=== PATIENT | female | born 1955 | race Two or more races ===

== ENCOUNTER 2017-01-24 13:47 | Emergency (ER) | payer MEDICAID, OTHER ==
[~2017-01-24] VITALS: Ht 154.9 cm; Wt 68.5 kg
[~2017-01-24 13:47] MED LIST: CATAPRES0.2 MG ORAL; NORVASC5 MG ORAL; THALOMID50 MG PO; ZOLPIDEM TARTRA10 MG ORAL
[2017-01-24] MEDS ORDERED: LORAZEPAM2 MG/1 M4 ORAL (14:18)
[2017-01-24 14:44] VITALS: BP 147/91
[2017-01-24 15:07] VITALS: BP 151/82
--- NOTE | 2017-01-24 16:32 | Emergency Room Report ---
History of Present Illness General Chief Complaint: Pain Source: Patient Present Illness HPI 61-year-old female presents to ED for evaluation. Patient referred by PMD to rule out DVT. Patient has pain and swelling to her right calf times one week. Patient has has arthritis of the right knee and typically gets swelling of the right knee however patient is also noting swelling of the right calf. Pain is a 10 out of 10, throbbing, nonradiating. Denies chest pain or shortness of breath. No other aggravating relieving factors. Denies any other associated symptom Allergies: Coded Allergies: No Known Allergies (Unverified , 04/29/16) Patient History Past Medical History: HTN Past Surgical History: none Pertinent Family History: none Social History: Denies: alcohol use, drug use, smoking Now: No Immunizations: UTD Reviewed Nursing Documentation: PMH: Agreed, PSxH: Agreed Nursing Documentation-PMH Hx Cardiac Problems: Yes Hx Hypertension: Yes Hx Cancer: No Hx Gastrointestinal Problems: No Hx Neurological Problems: No - RA Review of Systems All Other Systems: negative except mentioned in HPI Physical Exam Vital Signs Date Time Temp Pulse Resp B/P Pulse Ox O2 Delivery O2 Flow Rate FiO2 01/24/17 14:06 100.0 113 18 162/97 98 Room Air Sp02 EP Interpretation: reviewed, normal General Appearance: no apparent distress, alert, GCS 15, non-toxic Head: normocephalic Eyes: bilateral eye PERRL, bilateral eye normal inspection ENT: normal ENT inspection Neck: normal inspection Respiratory: chest non-tender, lungs clear, normal breath sounds, speaking full sentences Cardiovascular #1: regular rate, rhythm, no edema Gastrointestinal: normal inspection Rectal: deferred Genitourinary: no CVA tenderness Musculoskeletal: calf tenderness, swelling - R knee Neurologic: alert, oriented x3, responsive, motor strength/tone normal, sensory intact, speech normal Psychiatric: judgement/insight normal, memory normal, mood/affect normal, no suicidal/homicidal ideation Skin: normal inspection Lymphatic: normal inspection Medical Decision Making Diagnostic Impression: Primary Impression: Calf swelling ER Course Hospital Course 61-year-old F presents to ED complaining of R calf pain/swelling. sent to r/o DVT Differential diagnoses include: arthritis, DVT, cellulitis Clinical course Patient placed on stretcher. After initial history and physical, I ordered doppler US no evidence of DVT. Swelling is likely from the right knee which is very swollen. Patient has history of ulcer arthritis of the right knee and states this is typical Diagnosis - calf swelling Stable and discharged to home. apply ice, keep elevated. weight bear as tolerated. Followup with PMD. Return to ED if symptoms recur or worsen CT/MRI/US Diagnostic Results CT/MRI/US Diagnostic Results : Imaging Test Ordered: doppler US RLE Impression no dvt Last Vital Signs Date Time Temp Pulse Resp B/P Pulse Ox O2 Delivery O2 Flow Rate FiO2 01/24/17 15:07 100.0 99 18 151/82 99 Room Air Status: improved Disposition: HOME, SELF-CARE Condition: Stable Patient Instructions: Osteoarthritis DANILO WATERS M.D. Jan 24, 2017 16:32
--- NOTE | 2017-01-27 11:42 | Diagnostic Imaging Report ---
APPROVED REPORT CPT Code: 01199 Present Symptoms Lower Extremity Pain: Right RIGHT LEG: Venous imaging reveals a patent deep venous system. There is no evidence of thrombus within the femoral, popliteal or tibial segments. The greater saphenous vein is also within normal limits. Doppler indicates normal spontaneous flow within these segments.
== END 2017-01-24 15:10 | disposition home or self-care (01) ==
LOC: EMR 14:40
DX: R22.41 Localized swelling, mass and lump, right lower limb (principal); M17.11 Unilateral primary osteoarthritis, right knee; I10 Essential (primary) hypertension; M06.9 Rheumatoid arthritis, unspecified
CPT/HCPCS: 93971; 99284

== ENCOUNTER 2017-05-15 20:23 | Emergency (ER) | payer OTHER ==
[~2017-05-15] VITALS: Ht 152.4 cm; Wt 67.1 kg
[~2017-05-15 20:23] MED LIST changes: +LORAZEPAM2 MG/1 M4 ORAL
[2017-05-15] MEDS ORDERED: AMLODIPINE BESY10 MG ORAL (20:32)
[2017-05-15] MEDS ORDERED: VITAMIN D22000 UNIT PO (20:32)
[2017-05-15] MEDS ORDERED: FOLIC ACID1 MG ORAL (20:32)
[2017-05-15] MEDS ORDERED: METHOTREXATE2.5 MG PO (20:32)
[2017-05-15] MEDS ORDERED: Metoprolol 5mg/5ml Inj IVP ONE (21:00)
[2017-05-15 21:16] VITALS: BP 169/104
[2017-05-15 21:20] LABS: BASOPHILS % (AUTO) 1.1 % (0.0-2.0); EOSINOPHILS % (AUTO) 1.5 % (0.0-3.0); LYMPHOCYTES % (AUTO) 28.8 % (20.0-45.0); MEAN CORPUSCULAR HEMOGLOBIN 28.5 PG (27.0-31.0); MEAN CORPUSCULAR HGB CONC 31.4 G/DL (32.0-36.0); MEAN CORPUSCULAR VOLUME 91 FL (80-99); MEAN PLATELET VOLUME 5.2 FL (6.5-10.1); MONOCYTES % (AUTO) 3.9 % (1.0-10.0); NEUTROPHILS % (AUTO) 64.8 % (45.0-75.0); PLATELET COUNT 307 K/UL (150-450); RED BLOOD COUNT 4.92 M/UL (4.20-5.40); RED CELL DISTRIBUTION WIDTH 13.5 % (11.6-14.8); WHITE BLOOD COUNT 7.6 K/UL (4.8-10.8)
[2017-05-15] MEDS ORDERED: dilTIAZem HCl 25mg/5ml Inj IV PRN (21:45)
[2017-05-15] MEDS ORDERED: Albuterol/Ipratropium 3ml neb HHN PRN (21:45)
[2017-05-15] MEDS ORDERED: Miralax 17gm pkt ORAL PRN (21:45)
[2017-05-15] MEDS ORDERED: Enalaprilat 2.5mg/2ml Inj IV PRN (21:45)
[2017-05-15 21:46] LABS: ANION GAP 7 mmol/L (5-15); CALCIUM 9.6 MG/DL (8.5-10.1); CARBON DIOXIDE 29 MMOL/L (21-32); CHLORIDE 105 MMOL/L (98-107); CREATININE 0.7 MG/DL (0.55-1.30); GLOMERULAR FILTRATION RATE > 60 mL/min (>60); POTASSIUM 3.8 MMOL/L (3.5-5.1); SODIUM 141 MMOL/L (136-145)
[2017-05-15 21:55] VITALS: BP 146/83
[2017-05-15] MEDS ORDERED: Nitroglycerin Subl 0.4mg tab SL PRN (22:00)
[2017-05-15 22:01] LABS: ALANINE AMINOTRANSFERASE 18 U/L (12-78); ALBUMIN/GLOBULIN RATIO 0.9 (1.0-2.7); ASPARTATE AMINO TRANSFERASE 15 U/L (15-37); CKMB < 0.5 NG/ML (0.0-3.6); TOTAL PROTEIN 8.4 G/DL (6.4-8.2)
[2017-05-15] MEDS ORDERED: NORVASC5 MG ORAL (22:30)
[2017-05-15 22:35] VITALS: BP 164/90
[2017-05-16] MEDS ORDERED: Heparin 5000 units/ml inj SUBQ SCH (09:00)
[2017-05-16] MEDS ORDERED: cloNIDine 0.2mg Tab ORAL SCH (09:00)
--- NOTE | 2017-05-16 09:52 | Diagnostic Imaging Report ---
Indication: Shortness of breath Technique: XRAY CHEST 1 V Comparison: 08/02/16 Findings: The cardiomediastinal silhouette is within normal limits. There is no focal consolidation, pneumothorax or pleural effusion. Osseous structures are grossly stable. Impression: No acute cardiopulmonary disease.
--- NOTE | 2017-05-17 08:12 | Emergency Room Report ---
History of Present Illness General Chief Complaint: Hypertension Source: Patient Present Illness HPI Patient is a 61-year-old female brought in by self after increased blood pressure. Patient reported having some rapid heartbeat. Patient had been taking amlodipine as well as clonidine for her blood pressure. Patient had intermittent compliance with her amlodipine. Patient reports not having taken her medication every other day. The patient denies any chest pain or shortness of breath. She reports having a prior history of hypertension. She denies any headache or blurred vision. Allergies: Coded Allergies: No Known Allergies (Unverified , 04/29/16) Patient History Past Medical History: see triage record Last Menstrual Period: NA Now: No Reviewed Nursing Documentation: PMH: Agreed, PSxH: Agreed Nursing Documentation-PMH Hx Cardiac Problems: Yes - heart attack 2004 Hx Hypertension: Yes Hx Cancer: No Hx Gastrointestinal Problems: No Hx Neurological Problems: No - RA Review of Systems All Other Systems: negative except mentioned in HPI Physical Exam Vital Signs Date Time Temp Pulse Resp B/P (MAP) Pulse Ox O2 Delivery O2 Flow Rate FiO2 05/15/17 20:24 97.9 125 18 187/115 98 Room Air 05/15/17 20:37 100 Sp02 EP Interpretation: reviewed, normal General Appearance: normal inspection, well appearing, no apparent distress, alert, GCS 15, non-toxic Head: atraumatic ENT: normal ENT inspection, hearing grossly normal, normal voice Neck: normal inspection, full range of motion, supple, no bony tend Respiratory: normal inspection, lungs clear, normal breath sounds, no respiratory distress, no retraction, no wheezing Cardiovascular #1: regular rate, rhythm, no edema Gastrointestinal: normal inspection, normal bowel sounds, non tender, soft, no guarding, no hernia Genitourinary: no CVA tenderness Musculoskeletal: normal inspection, back normal, normal range of motion Neurologic: normal inspection, alert, responsive, speech normal Psychiatric: normal inspection, judgement/insight normal, mood/affect normal Skin: normal inspection, normal color, no rash Medical Decision Making Diagnostic Impression: Primary Impression: Hypertension ER Course Patient presented for palpitations. The differential diagnosis included was not limited to arrhythmia, thyroid storm, sepsis, anemia, myocardial infarction , alcohol withdrawal, stimulant abuse, caffeine overdose among others. Because of complexity of patient's case laboratory testing and imaging studies were ordered. EKG interpreted by me showed sinus tachycardia without acute ST or T wave changes. The patient was given metoprolol IV with improvement in her symptoms. Patient was given prescription for Norvasc. Patient was advised to take her medications regularly. The patient is advised to follow up with primary care doctor in 1-2 days. Patient is advised to return if any worsening condition or if any changes in status that are concerning. Labs Test 05/15/17 21:00 White Blood Count 7.6 K/UL (4.8-10.8) Red Blood Count 4.92 M/UL (4.20-5.40) Hemoglobin 14.0 G/DL (12.0-16.0) Hematocrit 44.6 % (37.0-47.0) Mean Corpuscular Volume 91 FL (80-99) Mean Corpuscular Hemoglobin 28.5 PG (27.0-31.0) Mean Corpuscular Hemoglobin Concent 31.4 G/DL (32.0-36.0) Red Cell Distribution Width 13.5 % (11.6-14.8) Platelet Count 307 K/UL (150-450) Mean Platelet Volume 5.2 FL (6.5-10.1) Neutrophils (%) (Auto) 64.8 % (45.0-75.0) Lymphocytes (%) (Auto) 28.8 % (20.0-45.0) Monocytes (%) (Auto) 3.9 % (1.0-10.0) Eosinophils (%) (Auto) 1.5 % (0.0-3.0) Basophils (%) (Auto) 1.1 % (0.0-2.0) Sodium Level 141 MMOL/L (136-145) Potassium Level 3.8 MMOL/L (3.5-5.1) Chloride Level 105 MMOL/L (98-107) Carbon Dioxide Level 29 MMOL/L (21-32) Anion Gap 7 mmol/L (5-15) Blood Urea Nitrogen 16 mg/dL (7-18) Creatinine 0.7 MG/DL (0.55-1.30) Estimat Glomerular Filtration Rate > 60 mL/min (>60) Glucose Level 134 MG/DL (74-106) Calcium Level 9.6 MG/DL (8.5-10.1) Total Bilirubin 0.4 MG/DL (0.2-1.0) Aspartate Amino Transf (AST/SGOT) 15 U/L (15-37) Alanine Aminotransferase (ALT/SGPT) 18 U/L (12-78) Alkaline Phosphatase 125 U/L (46-116) Total Creatine Kinase 55 U/L (26-308) Creatine Kinase MB < 0.5 NG/ML (0.0-3.6) Creatine Kinase MB Relative Index 0.9 Troponin I 0.015 ng/mL (0.000-0.056) Total Protein 8.4 G/DL (6.4-8.2) Albumin 4.0 G/DL (3.4-5.0) Globulin 4.4 g/dL Albumin/Globulin Ratio 0.9 (1.0-2.7) Last Vital Signs Date Time Temp Pulse Resp B/P (MAP) Pulse Ox O2 Delivery O2 Flow Rate FiO2 05/15/17 22:35 97.9 106 21 164/90 98 Room Air 100 Status: improved Disposition: HOME, SELF-CARE Condition: Stable Scripts Amlodipine Besylate (Norvasc) 5 Mg Tablet 5 MG ORAL DAILY for 30 Days, TAB Prov: Marc Foss 05/15/17 Referrals: [facility],REFERRING (PCP) Patient Instructions: Hypertension Marc Foss May 17, 2017 08:12
--- NOTE | 2017-05-17 15:32 | Cardiology Report ---
APPROVED REPORT EKG Measurement Heart [id number] Sinus tachycardia Cannot rule out Anterior infarct, age undetermined Abnormal ECG
== END 2017-05-15 22:35 | disposition home or self-care (01) ==
LOC: EMR 20:40
DX: I10 Essential (primary) hypertension (principal)
CPT/HCPCS: 36415; 71010; 80053; 82550; 82553; 84484; 85025; 93005; 99283

== ENCOUNTER 2017-08-03 11:43 | Inpatient (IN) | payer OTHER ==
[~2017-08-03] VITALS: Ht 152.4 cm; Wt 65.3 kg
[~2017-08-03 11:43] MED LIST changes: +AMLODIPINE BESY10 MG ORAL; +FOLIC ACID1 MG ORAL; +METHOTREXATE2.5 MG PO; +VITAMIN D22000 UNIT PO
[2017-08-03 12:20] VITALS: BP 203/117
[2017-08-03 12:50] VITALS: BP 171/111
[2017-08-03 12:56] LABS: BASOPHILS % (AUTO) 0.8 % (0.0-2.0); EOSINOPHILS % (AUTO) 3.1 % (0.0-3.0); HEMOGLOBIN 16.8 G/DL (12.0-16.0); LYMPHOCYTES % (AUTO) 30.6 % (20.0-45.0); MEAN CORPUSCULAR VOLUME 86 FL (80-99); MONOCYTES % (AUTO) 6.5 % (1.0-10.0); NEUTROPHILS % (AUTO) 58.9 % (45.0-75.0); PLATELET COUNT 355 K/UL (150-450); RED BLOOD COUNT 5.91 M/UL (4.20-5.40); RED CELL DISTRIBUTION WIDTH 12.6 % (11.6-14.8)
[2017-08-03 12:58] LABS: ANION GAP 8 mmol/L (5-15); BLOOD UREA NITROGEN 12 mg/dL (7-18); CALCIUM 9.5 MG/DL (8.5-10.1); CARBON DIOXIDE 30 MMOL/L (21-32); CHLORIDE 99 MMOL/L (98-107); CREATININE 0.7 MG/DL (0.55-1.30); POTASSIUM 3.4 MMOL/L (3.5-5.1); SODIUM 136 MMOL/L (136-145)
--- NOTE | 2017-08-03 13:02 | Emergency Room Report ---
History of Present Illness General Chief Complaint: Chest Pain Source: Patient Present Illness HPI 61-year-old female with pmhx of HTN, p/w chest pain for 15 minutes. Chest pain started while at rest. Localized to substernal area, no radiation to back or other areas, sharp in nature, gradual in onset, one episodes. Denies SOB. Denies palpitations, diaphoresis, n/v. Patient does not take aspirin or Plavix Denies fever, chills, cough, abd pain. Denies trauma. Does not know when her last stress test was Last cardiac catheterization around 10 years ago, states that they did not put any stents but does not know the result of the test Denies smoking, no family history of cardiac disease at a young age. States that her pain has resolved upon coming to the emergency room Allergies: Coded Allergies: No Known Allergies (Unverified , 04/29/16) Patient History Past Medical History: see triage record Past Surgical History: none Pertinent Family History: none Reviewed Nursing Documentation: PMH: Agreed, PSxH: Agreed Nursing Documentation-PMH Hx Cardiac Problems: Yes - [place] (1999) Hx Hypertension: Yes - Arthritis Hx Cancer: No Hx Gastrointestinal Problems: No Hx Neurological Problems: No - RA Review of Systems All Other Systems: negative except mentioned in HPI Physical Exam Vital Signs Date Time Temp Pulse Resp B/P (MAP) Pulse Ox O2 Delivery O2 Flow Rate FiO2 08/03/17 11:52 101 20 203/117 95 Room Air 08/03/17 12:50 97.4 97.4 Sp02 EP Interpretation: reviewed, normal General Appearance: normal inspection, well appearing, no apparent distress, alert, GCS 15, non-toxic Head: normocephalic, atraumatic Eyes: bilateral eye normal inspection, bilateral eye PERRL, bilateral eye EOMI ENT: normal ENT inspection, normal pharynx, normal voice, moist mucus membranes Neck: normal inspection, full range of motion, supple Respiratory: normal inspection, lungs clear, normal breath sounds, no respiratory distress, no retraction, no wheezing, speaking full sentences, chest symmetrical Cardiovascular #1: normal inspection, regular rate, rhythm, no edema, normal capillary refill Cardiovascular #2: 2+ radial (R), 2+ radial (L) Gastrointestinal: normal inspection, non tender, soft, non-distended, no guarding Musculoskeletal: normal inspection, back normal, normal range of motion, non- tender Neurologic: normal inspection, alert, oriented x3, responsive, motor strength/ tone normal, sensory intact, normal gait, speech normal Psychiatric: normal inspection, judgement/insight normal, memory normal Skin: normal inspection, normal color, no rash, warm/dry, well hydrated, normal turgor Medical Decision Making Diagnostic Impression: Primary Impression: ACS (acute coronary syndrome) ER Course 61-year-old female presenting with chest pain DDX: ACS vs. CHF vs. pneumonia vs. gastritis/GERD vs. pneumothorax PE on differential however at this time there are other more likely diagnoses. Plan: IV access, obtain labs including troponin, EKG, CXR ASA ER course: Labs: troponin negative Patient given ASA. Patient required morphine for cp Disposition: Patient will be admitted to tele Dr Kaiser Please note that this Emergency Department Report was dictated using [employer] installer technology software, occasionally this can lead to erroneous entry secondary to interpretation by the dictation equipment. EKG Diagnostic Results EP Interpretation: Yes Rate: Tachycardia Rhythm: NSR ST Segments: Possible T wave inversion in V3 only ASA given to patient: Yes Rhythm Strip EP Interpretation: Yes Rate: 99 Rhythm: NSR, no PVCs, no ectopy Chest X-ray CXR: Ordered: Yes 1 view Indication: Chest pain EP interpretation: Yes Interpretation: No consolidation, no effusion, no PTX, no acute cardiopulmonary disease Impression: No acute disease Electronically signed by Myra Luo MD Laboratory Tests Test 08/03/17 12:14 White Blood Count 8.0 K/UL (4.8-10.8) Red Blood Count 5.91 M/UL (4.20-5.40) H Hemoglobin 16.8 G/DL (12.0-16.0) H Hematocrit 51.0 % (37.0-47.0) H Mean Corpuscular Volume 86 FL (80-99) Mean Corpuscular Hemoglobin 28.5 PG (27.0-31.0) Mean Corpuscular Hemoglobin Concent 33.0 G/DL (32.0-36.0) Red Cell Distribution Width 12.6 % (11.6-14.8) Platelet Count 355 K/UL (150-450) Mean Platelet Volume 6.1 FL (6.5-10.1) L Neutrophils (%) (Auto) 58.9 % (45.0-75.0) Lymphocytes (%) (Auto) 30.6 % (20.0-45.0) Monocytes (%) (Auto) 6.5 % (1.0-10.0) Eosinophils (%) (Auto) 3.1 % (0.0-3.0) H Basophils (%) (Auto) 0.8 % (0.0-2.0) Urine Color Pale yellow Urine Appearance Clear Urine pH 7 (4.5-8.0) Urine Specific [place] 1.005 (1.005-1.035) Urine Protein Negative (NEGATIVE) Urine Glucose (UA) Negative (NEGATIVE) Urine Ketones Negative (NEGATIVE) Urine Occult Blood 1+ (NEGATIVE) H Urine Nitrite Negative (NEGATIVE) Urine Bilirubin Negative (NEGATIVE) Urine Urobilinogen Normal MG/DL (0.0-1.0) Urine Leukocyte Esterase 2+ (NEGATIVE) H Urine RBC 2-4 /HPF (0 - 2) H Urine WBC 2-4 /HPF (0 - 2) Urine Squamous Epithelial Cells Occasional /LPF Urine Bacteria Occasional /HPF (NONE) Sodium Level 136 MMOL/L (136-145) Potassium Level 3.4 MMOL/L (3.5-5.1) L Chloride Level 99 MMOL/L (98-107) Carbon Dioxide Level 30 MMOL/L (21-32) Anion Gap 8 mmol/L (5-15) Blood Urea Nitrogen 12 mg/dL (7-18) Creatinine 0.7 MG/DL (0.55-1.30) Estimate Glomerular Filtration Rate > 60 mL/min (>60) Glucose Level 107 MG/DL (74-106) H Calcium Level 9.5 MG/DL (8.5-10.1) Total Bilirubin 0.4 MG/DL (0.2-1.0) Aspartate Amino Transferase (AST) 20 U/L (15-37) Alanine Aminotransferase (ALT) 24 U/L (12-78) Alkaline Phosphatase 128 U/L (46-116) H Troponin I 0.051 ng/mL (0.000-0.056) Pro-B-Type Natriuretic Peptide 272 pg/mL (0-125) H Total Protein 7.9 G/DL (6.4-8.2) Albumin 3.8 G/DL (3.4-5.0) Globulin 4.1 g/dL Albumin/Globulin Ratio 0.9 (1.0-2.7) L Last Vital Signs Date Time Temp Pulse Resp B/P (MAP) Pulse Ox O2 Delivery O2 Flow Rate FiO2 08/03/17 12:50 97.4 20 171/111 95 Room Air 97.4 08/03/17 12:20 101 Disposition: ADMITTED INPATIENT Condition: Serious RetinoMyra M.D. Aug 03, 2017 13:02
[2017-08-03 13:04] LABS: APPEARANCE,URINE CLEAR; BILIRUBIN, URINE NEGATIVE (NEGATIVE); COLOR,URINE PALE YELLOW; GLUCOSE, URINE (UA) NEGATIVE (NEGATIVE); KETONES,URINE NEGATIVE (NEGATIVE); LEUKOCYTE ESTERASE ,URINE 2+ (NEGATIVE); NITRITE,URINE NEGATIVE (NEGATIVE); PH,URINE 7 (4.5-8.0); PROTEIN,URINE NEGATIVE (NEGATIVE); UROBILINOGEN,URINE NORMAL MG/DL (0.0-1.0)
[2017-08-03 13:08] LABS: ALANINE AMINOTRANSFERASE 24 U/L (12-78); ALBUMIN 3.8 G/DL (3.4-5.0); ALBUMIN/GLOBULIN RATIO 0.9 (1.0-2.7); ALKALINE PHOSPHATASE 128 U/L (46-116); ASPARTATE AMINO TRANSFERASE 20 U/L (15-37); BILIRUBIN,TOTAL 0.4 MG/DL (0.2-1.0)
--- NOTE | 2017-08-03 13:14 | Diagnostic Imaging Report ---
Indication: Dyspnea Comparison: 05/15/2017 A single view chest radiograph was obtained. Findings: Cardiomediastinal appearance is within normal limits for age. Pulmonary vascularity is appropriate. The diaphragmatic contour is smooth and costophrenic angles are sharp. No pleural effusions are identified. The bones are osteopenic. Impression: No acute findings
[2017-08-03] MEDS ORDERED: Morphine Sulfate 4mg/ml Inj IVP ONE (13:15)
[2017-08-03] MEDS ORDERED: Ketorolac 30mg Inj IV PRN (14:45)
[2017-08-03] MEDS ORDERED: Miralax 17gm pkt ORAL PRN (14:45)
[2017-08-03] MEDS ORDERED: Enalaprilat 2.5mg/2ml Inj IV PRN (14:45)
[2017-08-03] MEDS ORDERED: Morphine Sulfate 2mg/ml Inj IVP PRN (14:45)
[2017-08-03] MEDS ORDERED: dilTIAZem HCl 25mg/5ml Inj IV PRN (14:45)
[2017-08-03] MEDS ORDERED: Albuterol/Ipratropium 3ml neb HHN PRN (14:45)
[2017-08-03] MEDS ORDERED: HYDROCHLOROTH12.5 M2 ORAL (15:17)
[2017-08-03] MEDS ORDERED: DICLOFENAC SODI75 MG ORAL (15:17)
[2017-08-03] MEDS ORDERED: Nitroglycerin Subl 0.4mg tab SL PRN (15:45)
[2017-08-03 16:00] VITALS: BP 147/102
[2017-08-03] MEDS: cloNIDine 0.2mg Tab ORAL SCH (18:01)
--- NOTE | 2017-08-03 18:05 | History and Physical ---
History of Present Illness General Date patient seen: Aug 03, 2017 Reason for Hospitalization: Chest Pain Present Illness HPI 61-year-old female with pmhx of HTN, presented to ER with chest pain for 15 minutes. Chest pain started while at rest. Localized to substernal area, no radiation to back or other areas, sharp in nature, gradual in onset, one episodes. Denies SOB. Denies palpitations, diaphoresis. She had a cardiac catheterization around 10 years ago, states that they did not put any stents but does not know the result of the test her pain has resolved upon coming to the emergency room. Her systolic BP was 200 in ER. she is admitted telemetry for further evaluation. Allergies: Coded Allergies: No Known Allergies (Unverified , 04/29/16) Medication History Scheduled Amlodipine Besylate (Norvasc), 5 MG ORAL DAILY Amlodipine Besylate* (Amlodipine Besylate*), 10 MG ORAL DAILY, (Reported) Clonidine Hcl* (Catapres*), 0.2 MG ORAL TWICE A DAY, (Reported) Diclofenac Sod* (Voltaren*), 75 MG ORAL BID, (Reported) Ergocalciferol (Vitamin D2) (Vitamin D2), 50,000 UNIT PO ONCE A WEEK, (Reported) Folic Acid* (Folic Acid*), 1 MG ORAL DAILY, (Reported) Hydrochlorothiazide* (Hydrochlorothiazide*), 12.5 MG ORAL DAILY, (Reported) Lorazepam (Lorazepam), 2 MG ORAL THREE TIMES A DAY, (Reported) Miscellaneous Medications Methotrexate Sodium* (Methotrexate*), 2.5 MG PO, (Reported) Patient History Healthcare decision maker N Resuscitation status Advanced Directive on File Past Medical/Surgical History Past Medical/Surgical History: (1) Hypertension Review of Systems All Other Systems: negative except mentioned in HPI Physical Exam General Appearance: WD/WN Lines, tubes and drains: peripheral HEENT: normocephalic, atraumatic Neck: non-tender, normal alignment, supple Respiratory/Chest: chest wall non-tender, lungs clear, normal breath sounds, no respiratory distress Breasts: no masses Cardiovascular/Chest: normal rate, regular rhythm Abdomen: normal bowel sounds, non tender, soft Genitourinary/Rectal: normal genital exam, normal rectal exam Extremities: normal range of motion, non-tender, normal inspection, no calf tenderness Skin Exam: normal pigmentation, warm/dry Neurologic: artist suspect II-XII grossly normal, no motor/sensory deficits Last 24 Hour Vital Signs Date Time Temp Pulse Resp B/P (MAP) Pulse Ox O2 Delivery O2 Flow Rate FiO2 08/03/17 18:01 147/102 08/03/17 15:44 97.4 08/03/17 12:50 97.4 20 171/111 95 Room Air 97.4 08/03/17 12:20 20 203/117 95 Room Air 08/03/17 12:20 101 20 Room Air 08/03/17 11:52 97.8 101 20 203/117 95 Room Air 97.9 Laboratory Tests Test 08/03/17 12:14 White Blood Count 8.0 K/UL (4.8-10.8) Red Blood Count 5.91 M/UL (4.20-5.40) H Hemoglobin 16.8 G/DL (12.0-16.0) H Hematocrit 51.0 % (37.0-47.0) H Mean Corpuscular Volume 86 FL (80-99) Mean Corpuscular Hemoglobin 28.5 PG (27.0-31.0) Mean Corpuscular Hemoglobin Concent 33.0 G/DL (32.0-36.0) Red Cell Distribution Width 12.6 % (11.6-14.8) Platelet Count 355 K/UL (150-450) Mean Platelet Volume 6.1 FL (6.5-10.1) L Neutrophils (%) (Auto) 58.9 % (45.0-75.0) Lymphocytes (%) (Auto) 30.6 % (20.0-45.0) Monocytes (%) (Auto) 6.5 % (1.0-10.0) Eosinophils (%) (Auto) 3.1 % (0.0-3.0) H Basophils (%) (Auto) 0.8 % (0.0-2.0) Urine Color Pale yellow Urine Appearance Clear Urine pH 7 (4.5-8.0) Urine Specific [place] 1.005 (1.005-1.035) Urine Protein Negative (NEGATIVE) Urine Glucose (UA) Negative (NEGATIVE) Urine Ketones Negative (NEGATIVE) Urine Occult Blood 1+ (NEGATIVE) H Urine Nitrite Negative (NEGATIVE) Urine Bilirubin Negative (NEGATIVE) Urine Urobilinogen Normal MG/DL (0.0-1.0) Urine Leukocyte Esterase 2+ (NEGATIVE) H Urine RBC 2-4 /HPF (0 - 2) H Urine WBC 2-4 /HPF (0 - 2) Urine Squamous Epithelial Cells Occasional /LPF Urine Bacteria Occasional /HPF (NONE) Sodium Level 136 MMOL/L (136-145) Potassium Level 3.4 MMOL/L (3.5-5.1) L Chloride Level 99 MMOL/L (98-107) Carbon Dioxide Level 30 MMOL/L (21-32) Anion Gap 8 mmol/L (5-15) Blood Urea Nitrogen 12 mg/dL (7-18) Creatinine 0.7 MG/DL (0.55-1.30) Estimat Glomerular Filtration Rate > 60 mL/min (>60) Glucose Level 107 MG/DL (74-106) H Calcium Level 9.5 MG/DL (8.5-10.1) Total Bilirubin 0.4 MG/DL (0.2-1.0) Aspartate Amino Transf (AST/SGOT) 20 U/L (15-37) Alanine Aminotransferase (ALT/SGPT) 24 U/L (12-78) Alkaline Phosphatase 128 U/L (46-116) H Troponin I 0.051 ng/mL (0.000-0.056) Pro-B-Type Natriuretic Peptide 272 pg/mL (0-125) H Total Protein 7.9 G/DL (6.4-8.2) Albumin 3.8 G/DL (3.4-5.0) Globulin 4.1 g/dL Albumin/Globulin Ratio 0.9 (1.0-2.7) L Height (Feet): 5 Height (Inches): 0.00 Weight (Pounds): 144 Medications Current Medications Medications (Trade) Dose Ordered Sig/Toby Route PRN Reason Start Time Stop Time Status Last Admin Dose Admin Acetaminophen (Tylenol) 650 mg Q4H PRN ORAL T>100.5 08/03/17 14:45 09/02/17 14:44 Albuterol/ Ipratropium (Albuterol/ Ipratropium) 3 ml Q4H PRN HHN Shortness of Breath 08/03/17 14:45 08/08/17 14:44 Amlodipine Besylate (Norvasc) 5 mg DAILY ORAL 08/04/17 09:00 09/03/17 08:59 Aspirin (ASA) 162 mg DAILY ORAL 08/04/17 09:00 09/03/17 08:59 Clonidine HCl (Catapres tab) 0.2 mg TWICE A DAY ORAL 08/03/17 18:00 09/02/17 17:59 08/03/17 18:01 Diltiazem HCl (Cardizem) 10 mg EVERY HOUR PRN IV heart rate more than 120 08/03/17 14:45 09/02/17 14:44 Enalaprilat (Vasotec) 2.5 mg Q6H PRN IV sbp more than 160 08/03/17 14:45 09/02/17 14:44 Heparin Sodium (Porcine) (Heparin 5000 units/ml) 5,000 units EVERY 12 HOURS SUBQ 08/03/17 21:00 09/02/17 20:59 Methotrexate (metHOTREXate) 2.5 mg DAILY ORAL 08/04/17 09:00 08/09/17 08:59 UNV Morphine Sulfate (Morphine Sulfate) 2 mg Q4H PRN IVP Severe Pain (Pain Scale 7-10) 08/03/17 14:45 08/10/17 14:44 Nitroglycerin (Ntg) 0.4 mg Q5MIN X 3 DOSES PRN SL Prn Chest Pain 08/03/17 15:45 09/02/17 15:44 Ondansetron HCl (Zofran) 4 mg Q6H PRN IVP Nausea & Vomiting 08/03/17 14:45 09/02/17 14:44 Polyethylene Glycol (Miralax) 17 gm DAILYPRN PRN ORAL Constipation 08/03/17 14:45 09/02/17 14:44 Temazepam (Restoril) 15 mg HSPRN PRN ORAL Insomnia 08/03/17 21:00 08/10/17 20:59 Assessment/Plan Problem List: (1) Hypertensive emergency ICD Codes: I16.1 - Hypertensive emergency SNOMED: 344312355110885 (2) ACS (acute coronary syndrome) ICD Codes: I24.9 - Acute ischemic heart disease, unspecified SNOMED: 293798504 Assessment/Plan monitor BP echo cardiac evaluation f/u troponin DEN SAGE Aug 03, 2017 18:05
[2017-08-03 20:00] VITALS: BP 138/102
[2017-08-03] MEDS: Heparin 5000 units/ml inj SUBQ SCH (21:03)
[2017-08-04] VITALS: BP 146/98
[2017-08-04 04:00] VITALS: BP 132/84
[2017-08-04 07:13] LABS: EOSINOPHILS % (AUTO) 3.3 % (0.0-3.0); HEMATOCRIT 49.3 % (37.0-47.0); HEMOGLOBIN 16.3 G/DL (12.0-16.0); LYMPHOCYTES % (AUTO) 28.8 % (20.0-45.0); MEAN CORPUSCULAR VOLUME 88 FL (80-99); MONOCYTES % (AUTO) 6.6 % (1.0-10.0); NEUTROPHILS % (AUTO) 60.3 % (45.0-75.0); PLATELET COUNT 331 K/UL (150-450); RED BLOOD COUNT 5.63 M/UL (4.20-5.40); RED CELL DISTRIBUTION WIDTH 12.9 % (11.6-14.8); WHITE BLOOD COUNT 8.9 K/UL (4.8-10.8)
[2017-08-04 07:55] LABS: CHOLESTEROL 171 MG/DL (< 200); HDL CHOLESTEROL 71 MG/DL (40-60); TRIGLYCERIDES 121 MG/DL (30-150)
[2017-08-04 08:00] VITALS: BP 149/114
[2017-08-04] MEDS: cloNIDine 0.2mg Tab ORAL SCH ×2 (08:45→17:02)
[2017-08-04] MEDS: Aspirin Baby 81mg ORAL SCH (08:45)
[2017-08-04] MEDS: Heparin 5000 units/ml inj SUBQ SCH ×2 (08:47→20:52)
--- NOTE | 2017-08-04 11:06 | Pulmonology Progress Note ---
Assessment/Plan Problems: (1) Hypertensive emergency (2) ACS (acute coronary syndrome) Assessment/Plan f/u echo f/u cario recommendation resume amlodipine dvt prophylaxis. could go home whenever cleared by cardio Subjective ROS Limited/Unobtainable: No Constitutional: Reports: no symptoms HEENT: Repors: no symptoms Respiratory: Reports: no symptoms Allergies: Coded Allergies: No Known Allergies (Unverified , 04/29/16) Objective Last 24 Hour Vital Signs Date Time Temp Pulse Resp B/P (MAP) Pulse Ox O2 Delivery O2 Flow Rate FiO2 08/04/17 08:46 97 149/114 08/04/17 08:45 149/114 08/04/17 08:00 98.2 97 18 149/114 98 Room Air 08/04/17 08:00 97 08/04/17 04:00 80 08/04/17 04:00 97.1 64 18 132/84 94 Room Air 08/04/17 00:00 97.9 100 20 146/98 95 Room Air 08/03/17 20:00 94 08/03/17 20:00 98.2 104 22 138/102 92 Room Air 08/03/17 18:01 147/102 08/03/17 17:25 97.0 22 147/102 92 Room Air 97.0 08/03/17 16:00 97.0 103 22 147/102 92 Room Air 08/03/17 15:44 97.4 08/03/17 12:50 97.4 20 171/111 95 Room Air 97.4 08/03/17 12:20 20 203/117 95 Room Air 08/03/17 12:20 101 20 Room Air 08/03/17 11:52 97.8 101 20 203/117 95 Room Air 97.9 Intake and Output 08/03/17 08/04/17 19:00 07:00 Intake Total 32 ml 230 ml Output Total 350 ml Balance 32 ml -120 ml Intake Oral 32 ml 230 ml Output Urine Total 350 ml # Voids 1 Objective General Appearance: WD/WN HEENT: normocephalic Respiratory/Chest: chest wall non-tender, lungs clear, normal breath sounds Cardiovascular: normal peripheral pulses, normal rate Abdomen: normal bowel sounds, soft, non tender, no organomegaly Extremities: no cyanosis, no clubbing 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 Lymphatic: no neck adenopathy Laboratory Tests 08/03/17 12:14: White Blood Count 8.0, Red Blood Count 5.91H, Hemoglobin 16.8H, Hematocrit 51.0H , Mean Corpuscular Volume 86, Mean Corpuscular Hemoglobin 28.5, Mean Corpuscular Hemoglobin Concent 33.0, Red Cell Distribution Width 12.6, Platelet Count 355, Mean Platelet Volume 6.1L, Neutrophils (%) (Auto) 58.9, Lymphocytes ( %) (Auto) 30.6, Monocytes (%) (Auto) 6.5, Eosinophils (%) (Auto) 3.1H, Basophils (%) (Auto) 0.8, Urine Color Pale yellow, Urine Appearance Clear, Urine pH 7, Urine Specific [place] 1.005, Urine Protein Negative, Urine Glucose (UA) Negative, Urine Ketones Negative, Urine Occult Blood 1+H, Urine Nitrite Negative, Urine Bilirubin Negative, Urine Urobilinogen Normal, Urine Leukocyte Esterase 2+H, Urine RBC 2-4H, Urine WBC 2-4, Urine Squamous Epithelial Cells Occasional, Urine Bacteria Occasional, Sodium Level 136, Potassium Level 3.4L, Chloride Level 99, Carbon Dioxide Level 30, Anion Gap 8, Blood Urea Nitrogen 12 , Creatinine 0.7, Estimat Glomerular Filtration Rate > 60, Glucose Level 107H, Calcium Level 9.5, Total Bilirubin 0.4, Aspartate Amino Transf (AST/SGOT) 20, Alanine Aminotransferase (ALT/SGPT) 24, Alkaline Phosphatase 128H, Troponin I 0.051, Pro-B-Type Natriuretic Peptide 272H, Total Protein 7.9, Albumin 3.8, Globulin 4.1, Albumin/Globulin Ratio 0.9L 08/04/17 06:05: White Blood Count 8.9, Red Blood Count 5.63H, Hemoglobin 16.3H, Hematocrit 49.3H , Mean Corpuscular Volume 88, Mean Corpuscular Hemoglobin 29.0, Mean Corpuscular Hemoglobin Concent 33.1, Red Cell Distribution Width 12.9, Platelet Count 331, Mean Platelet Volume 6.0L, Neutrophils (%) (Auto) 60.3, Lymphocytes ( %) (Auto) 28.8, Monocytes (%) (Auto) 6.6, Eosinophils (%) (Auto) 3.3H, Basophils (%) (Auto) 1.0, Troponin I 0.165H, Prothrombin Time 10.1, Prothromb Time International Ratio 1.0, Activated Partial Thromboplast Time 28, C- Reactive Protein, Quantitative 3.5H, Triglycerides Level 121, Cholesterol Level 171, LDL Cholesterol 95, HDL Cholesterol 71H, Cholesterol/HDL Ratio 2.4L, Thyroid Stimulating Hormone (TSH) 3.777H Current Medications Medications (Trade) Dose Ordered Sig/Toby Route PRN Reason Start Time Stop Time Status Last Admin Dose Admin Acetaminophen (Tylenol) 650 mg Q4H PRN ORAL T>100.5 08/03/17 14:45 09/02/17 14:44 Albuterol/ Ipratropium (Albuterol/ Ipratropium) 3 ml Q4H PRN HHN Shortness of Breath 08/03/17 14:45 08/08/17 14:44 Amlodipine Besylate (Norvasc) 5 mg DAILY ORAL 08/04/17 09:00 09/03/17 08:59 08/04/17 08:46 Aspirin (ASA) 162 mg DAILY ORAL 08/04/17 09:00 09/03/17 08:59 08/04/17 08:45 Clonidine HCl (Catapres tab) 0.2 mg TWICE A DAY ORAL 08/03/17 18:00 09/02/17 17:59 08/04/17 08:45 Diltiazem HCl (Cardizem) 10 mg EVERY HOUR PRN IV heart rate more than 120 08/03/17 14:45 09/02/17 14:44 Enalaprilat (Vasotec) 2.5 mg Q6H PRN IV sbp more than 160 08/03/17 14:45 09/02/17 14:44 Heparin Sodium (Porcine) (Heparin 5000 units/ml) 5,000 units EVERY 12 HOURS SUBQ 08/03/17 21:00 09/02/17 20:59 08/04/17 08:47 Methotrexate (metHOTREXate) 2.5 mg DAILY ORAL 08/04/17 09:00 08/09/17 08:59 UNV Morphine Sulfate (Morphine Sulfate) 2 mg Q4H PRN IVP Severe Pain (Pain Scale 7-10) 08/03/17 14:45 08/10/17 14:44 Nitroglycerin (Ntg) 0.4 mg Q5MIN X 3 DOSES PRN SL Prn Chest Pain 2/12/18 15:45 09/02/17 15:44 Ondansetron HCl (Zofran) 4 mg Q6H PRN IVP Nausea & Vomiting 08/03/17 14:45 09/02/17 14:44 Polyethylene Glycol (Miralax) 17 gm DAILYPRN PRN ORAL Constipation 08/03/17 14:45 09/02/17 14:44 Temazepam (Restoril) 15 mg HSPRN PRN ORAL Insomnia 08/03/17 21:00 08/10/17 20:59 DEN SAGE Aug 04, 2017 11:05
[2017-08-04 12:38] VITALS: BP 123/71
--- NOTE | 2017-08-04 13:35 | Cardiology Progress Note ---
Assessment/Plan Assessment/Plan 2nd trop abn repeat eklg and trop may need ishcmei evlaution in light of priro sx although her pain is very atypical Objective Last 24 Hour Vital Signs Date Time Temp Pulse Resp B/P (MAP) Pulse Ox O2 Delivery O2 Flow Rate FiO2 08/04/17 12:47 70 123/71 08/04/17 12:38 97.0 70 18 123/71 95 Room Air 08/04/17 08:46 97 149/114 08/04/17 08:45 149/114 08/04/17 08:00 98.2 97 18 149/114 98 Room Air 08/04/17 08:00 97 08/04/17 04:00 80 08/04/17 04:00 97.1 64 18 132/84 94 Room Air 08/04/17 00:00 97.9 100 20 146/98 95 Room Air 08/03/17 20:00 94 08/03/17 20:00 98.2 104 22 138/102 92 Room Air 08/03/17 18:01 147/102 08/03/17 17:25 97.0 22 147/102 92 Room Air 97.0 08/03/17 16:00 97.0 103 22 147/102 92 Room Air 08/03/17 15:44 97.4 Intake and Output 08/03/17 08/04/17 19:00 07:00 Intake Total 32 ml 230 ml Output Total 350 ml Balance 32 ml -120 ml Intake Oral 32 ml 230 ml Output Urine Total 350 ml # Voids 1 Laboratory Tests Test 08/04/17 06:05 White Blood Count 8.9 K/UL (4.8-10.8) Red Blood Count 5.63 M/UL (4.20-5.40) H Hemoglobin 16.3 G/DL (12.0-16.0) H Hematocrit 49.3 % (37.0-47.0) H Mean Corpuscular Volume 88 FL (80-99) Mean Corpuscular Hemoglobin 29.0 PG (27.0-31.0) Mean Corpuscular Hemoglobin Concent 33.1 G/DL (32.0-36.0) Red Cell Distribution Width 12.9 % (11.6-14.8) Platelet Count 331 K/UL (150-450) Mean Platelet Volume 6.0 FL (6.5-10.1) L Neutrophils (%) (Auto) 60.3 % (45.0-75.0) Lymphocytes (%) (Auto) 28.8 % (20.0-45.0) Monocytes (%) (Auto) 6.6 % (1.0-10.0) Eosinophils (%) (Auto) 3.3 % (0.0-3.0) H Basophils (%) (Auto) 1.0 % (0.0-2.0) Prothrombin Time 10.1 SEC (9.30-11.50) Prothromb Time International Ratio 1.0 (0.9-1.1) Activated Partial Thromboplast Time 28 SEC (23-33) Troponin I 0.165 ng/mL (0.000-0.056) C-Reactive Protein, Quantitative 3.5 mg/dL (0.00-0.90) H Triglycerides Level 121 MG/DL (30-150) Cholesterol Level 171 MG/DL (< 200) LDL Cholesterol 95 mg/dL (<100) HDL Cholesterol 71 MG/DL (40-60) H Cholesterol/HDL Ratio 2.4 (3.3-4.4) L Thyroid Stimulating Hormone (TSH) 3.777 uiU/mL (0.358-3.740) KELLY ESTEVEZ Aug 04, 2017 13:35
[2017-08-04 16:00] VITALS: BP 124/80
--- NOTE | 2017-08-04 16:54 | Cardiology Report ---
APPROVED REPORT EXAM: Two-dimensional and M-mode echocardiogram with Doppler and color Doppler. INDICATION Left ventricular function M-Mode DIMENSIONS IVSd1.1 (0.7-1.1cm)Left Atrium (MM)2.5 (1.6-4.0cm) LVDd5.1 (3.5-5.6cm)Aortic Root2.6 (2.0-3.7cm) PWd0.9 (0.7-1.1cm)Aortic Cusp Exc.1.7 (1.5-2.0cm) LVDs3.0 (2.5-4.0cm) PWs1.3 cm Normal left ventricular chamber size, systolic function and wall motion except distal septal akinesis and distal inferior and apico inferior wall dyskinesis Left ventricular ejection fraction estimated to be 55-60%. Mild left ventricular hypertrophy. No evidence of pericardial or pleural effusion. All other cardiac chamber sizes are within normal limits. Focal aortic valve sclerosis with adequate cusp excursion. Thickened mitral valve leaflets with normal excursion. Mild mitral annulus and aortic root calcification. Pulmonic valve not well visualized. Normal tricuspid valve structure. IVC is normal in size and collapsible with respiration. A color flow and spectral Doppler study was performed and revealed: Trace aortic regurgitation. No mitral regurgitation. Mitral diastolic velocities suggest reduced left ventricular relaxation c/w diastolic dysfunction grade 1. No tricuspid regurgitation.
--- NOTE | 2017-08-04 17:02 | Cardiology Report ---
APPROVED REPORT EKG Measurement Heart [id number] Sinus tachycardia Minimal voltage criteria for LVH, may be normal variant Cannot rule out Anterior infarct, age undetermined Abnormal ECG
[2017-08-04 20:00] VITALS: BP 139/90
--- NOTE | 2017-08-04 20:15 | Consultation ---
DATE OF CONSULTATION: 08/04/2017 CARDIOLOGY CONSULTATION REFERRING PHYSICIAN: Tabitha Kaiser M.D. REASON FOR REFERRAL: Chest pain. HISTORY OF PRESENT ILLNESS: This 61-year-old female with history of coronary artery disease and coronary intervention back in 1999 presents with elevated blood pressure and a sensation of pain in the chest that is completely different than her myocardial infarction pain. She is having difficulty explaining, lasts approximately 10 minutes. No longer she did receive some morphine, which resolved the pain apparently. She never had this pain before. Radha is active around the house and she never gets pain in the chest. In fact, her myocardial infarction pain has no recurrence since this time back in 1999. There is no PND, uses two pillows. There is no dizziness on standing. No heart pounding or palpitations and again the pain is different when she experiences. PAST MEDICAL HISTORY: Positive for high blood pressure and history of heart attack and stents. No cancer. No stroke. No hepatitis or tuberculosis. No asthma or emphysema. No ulcers. No kidney problems or liver problems. She does have a thyroiditis, but she does not take any medications or she denies all the other medical problems. ALLERGIES: She is not allergic to any medications. SOCIAL HISTORY: She does not smoke or drink alcoholic beverages. No drug use. REVIEW OF SYSTEMS: GASTROINTESTINAL: Negative GENITOURINARY: Negative. CONSTITUTIONAL: Negative. PULMONARY: Negative. CARDIAC: As mentioned in the history of present illness. PHYSICAL EXAMINATION: GENERAL: Shows to be middle-aged female, in no respiratory distress. NECK: Supple. No jugular venous distention. No abdominojugular reflux noted. LUNGS: Clear to auscultation and percussion. CARDIAC: S1 is normal. S2 is normal. Regular rate and rhythm. No heaves, thrills, gallops, or rubs are noted. ABDOMEN: Soft and nontender. Positive bowel sounds. Chest wall is nontender. EXTREMITIES: There is no clubbing, cyanosis, or edema. LABORATORY AND DIAGNOSTIC DATA: White count of 8.9, hemoglobin 16.3, and platelet count of 331. Sodium is 136, potassium 3.4, chloride 99, bicarbonate 30, BUN 12, creatinine 0.7 and glucose of 107. Calcium is 9.5. Alkaline phosphate is 124. Troponin was 0.051 yesterday and 0.165 today. CRP of 3.5. Total cholesterol 171 with a LDL of 95 and HDL of 71. TSH of 3.77. Urinalysis is 2 to 4 rbc's and wbc's. INR is 1 and PTT of 28. Chest x-ray from yesterday showed no acute findings. Her electrocardiogram shows a normal sinus rhythm, really no ST-T abnormalities noted on the EKG. ASSESSMENT AND PLAN: 1. Atypical chest pain and coronary artery disease status post coronary intervention and myocardial infarction in 1999. 2. Hypertension. Dr. Kaiser, this patient was seen in cardiac consultation. The patient is somewhat atypical, that lasted approximately 10 minutes and apparently different than what she experienced previously however her first set of cardiac enzymes relatively normal, second one increased, needs further cardiac enzymes checking and once the cardiac enzymes are improved, may consider perfusion imaging to rule out an underlying ischemic symptoms, although again the pain is atypical and her EKG at least the first set was negative. She has had an echocardiogram that showed normal left ventricular systolic function. I will follow the patient along based on the results of the above testing and provide further recommendations. A venous duplex study of the lower extremity will be performed. Colton Ferrara M.D. DR: MARTY JOB#: [id number] CC:
[2017-08-04] MEDS: Atorvastatin 20mg tab ORAL SCH (20:50)
[2017-08-05] VITALS: BP 119/80
[2017-08-05 04:00] VITALS: BP 130/80
[2017-08-05 08:00] VITALS: BP 141/97
[2017-08-05 08:05] LABS: ANION GAP 6 mmol/L (5-15); BLOOD UREA NITROGEN 16 mg/dL (7-18); CALCIUM 8.9 MG/DL (8.5-10.1); CARBON DIOXIDE 29 MMOL/L (21-32); CHLORIDE 103 MMOL/L (98-107); CREATININE 0.8 MG/DL (0.55-1.30); POTASSIUM 3.9 MMOL/L (3.5-5.1); SODIUM 138 MMOL/L (136-145)
[2017-08-05 08:06] LABS: ALANINE AMINOTRANSFERASE 21 U/L (12-78); ASPARTATE AMINO TRANSFERASE 16 U/L (15-37); BILIRUBIN,TOTAL 0.5 MG/DL (0.2-1.0); PHOSPHORUS 3.7 MG/DL (2.5-4.9)
[2017-08-05 08:08] LABS: ALBUMIN 3.1 G/DL (3.4-5.0); ALBUMIN/GLOBULIN RATIO 0.9 (1.0-2.7)
[2017-08-05 08:09] LABS: ALKALINE PHOSPHATASE 98 U/L (46-116)
[2017-08-05 08:20] LABS: HEMATOCRIT 44.8 % (37.0-47.0); HEMOGLOBIN 14.8 G/DL (12.0-16.0); MEAN CORPUSCULAR VOLUME 88 FL (80-99); PLATELET COUNT 301 K/UL (150-450); RED BLOOD COUNT 5.11 M/UL (4.20-5.40); RED CELL DISTRIBUTION WIDTH 12.9 % (11.6-14.8); WHITE BLOOD COUNT 7.7 K/UL (4.8-10.8)
[2017-08-05 08:21] LABS: BASOPHILS % (AUTO) 0.7 % (0.0-2.0); EOSINOPHILS % (AUTO) 4.2 % (0.0-3.0); LYMPHOCYTES % (AUTO) 31.7 % (20.0-45.0); MONOCYTES % (AUTO) 6.6 % (1.0-10.0); NEUTROPHILS % (AUTO) 56.9 % (45.0-75.0)
[2017-08-05] MEDS: Aspirin Baby 81mg ORAL SCH (09:20)
[2017-08-05] MEDS: cloNIDine 0.2mg Tab ORAL SCH ×2 (09:20→16:59)
[2017-08-05] MEDS: Heparin 5000 units/ml inj SUBQ SCH ×2 (09:21→20:47)
[2017-08-05 12:00] VITALS: BP 134/91
--- NOTE | 2017-08-05 12:24 | Pulmonology Progress Note ---
Assessment/Plan Problems: (1) Hypertensive emergency (2) ACS (acute coronary syndrome) Assessment/Plan f/u echo f/u cario recommendation resume amlodipine dvt prophylaxis. troponin abnormal awaiting cardiac recommendation about performing stress testing. Subjective ROS Limited/Unobtainable: No Constitutional: Reports: no symptoms HEENT: Repors: no symptoms Allergies: Coded Allergies: No Known Allergies (Unverified , 04/29/16) Objective Last 24 Hour Vital Signs Date Time Temp Pulse Resp B/P (MAP) Pulse Ox O2 Delivery O2 Flow Rate FiO2 08/05/17 09:20 141/97 08/05/17 09:19 85 141/97 08/05/17 08:01 95 08/05/17 08:00 97.9 85 19 141/97 99 Room Air 08/05/17 04:00 98.0 96 20 130/80 96 Room Air 21 08/05/17 04:00 62 08/05/17 00:00 70 08/05/17 00:00 98.4 69 20 119/80 96 Room Air 21 08/04/17 20:03 88 08/04/17 20:00 98.5 92 20 139/90 99 Room Air 08/04/17 17:02 124/80 08/04/17 16:00 84 08/04/17 16:00 98.1 88 18 124/80 97 Room Air 08/04/17 12:47 70 123/71 08/04/17 12:38 97.0 70 18 123/71 95 Room Air Intake and Output 08/04/17 08/05/17 19:00 07:00 Intake Total 840 ml Balance 840 ml Intake Oral 840 ml # Voids 5 1 Objective General Appearance: WD/WN HEENT: normocephalic Respiratory/Chest: chest wall non-tender, lungs clear, normal breath sounds Cardiovascular: normal peripheral pulses, normal rate Abdomen: normal bowel sounds, soft, non tender, no organomegaly Extremities: no cyanosis, no clubbing 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 normal Lymphatic: no neck adenopathy Laboratory Tests 08/04/17 14:00: Troponin I 0.147H 08/05/17 07:02: Troponin I 0.153H, White Blood Count 7.7, Red Blood Count 5.11, Hemoglobin 14.8 , Hematocrit 44.8, Mean Corpuscular Volume 88, Mean Corpuscular Hemoglobin 29.0 , Mean Corpuscular Hemoglobin Concent 33.0, Red Cell Distribution Width 12.9, Platelet Count 301, Mean Platelet Volume 6.1L, Neutrophils (%) (Auto) 56.9, Lymphocytes (%) (Auto) 31.7, Monocytes (%) (Auto) 6.6, Eosinophils (%) (Auto) 4.2H, Basophils (%) (Auto) 0.7, Erythrocyte Sedimentation Rate 6, Sodium Level 138, Potassium Level 3.9, Chloride Level 103, Carbon Dioxide Level 29, Anion Gap 6, Blood Urea Nitrogen 16, Creatinine 0.8, Estimat Glomerular Filtration Rate > 60, Glucose Level 91, Calcium Level 8.9, Phosphorus Level 3.7, Magnesium Level 2.2, Total Bilirubin 0.5, Aspartate Amino Transf (AST/SGOT) 16, Alanine Aminotransferase (ALT/SGPT) 21, Alkaline Phosphatase 98, Total Protein 6.7, Albumin 3.1L, Globulin 3.6, Albumin/Globulin Ratio 0.9L Current Medications Medications (Trade) Dose Ordered Sig/Toby Route PRN Reason Start Time Stop Time Status Last Admin Dose Admin Acetaminophen (Tylenol) 650 mg Q4H PRN ORAL T>100.5 08/03/17 14:45 09/02/17 14:44 Albuterol/ Ipratropium (Albuterol/ Ipratropium) 3 ml Q4H PRN HHN Shortness of Breath 08/03/17 14:45 08/08/17 14:44 Amlodipine Besylate (Norvasc) 10 mg DAILY ORAL 08/05/17 09:00 09/04/17 08:59 08/05/17 09:19 Aspirin (ASA) 162 mg DAILY ORAL 08/04/17 09:00 09/03/17 08:59 08/05/17 09:20 Atorvastatin Calcium (Lipitor) 40 mg BEDTIME ORAL 08/04/17 21:00 09/03/17 20:59 08/04/17 20:50 Clonidine HCl (Catapres tab) 0.2 mg TWICE A DAY ORAL 08/03/17 18:00 09/02/17 17:59 08/05/17 09:20 Diltiazem HCl (Cardizem) 10 mg EVERY HOUR PRN IV heart rate more than 120 08/03/17 14:45 09/02/17 14:44 Enalaprilat (Vasotec) 2.5 mg Q6H PRN IV sbp more than 160 08/03/17 14:45 09/02/17 14:44 Heparin Sodium (Porcine) (Heparin 5000 units/ml) 5,000 units EVERY 12 HOURS SUBQ 08/03/17 21:00 09/02/17 20:59 08/05/17 09:21 Methotrexate (metHOTREXate) 15 mg QWEEK ORAL 08/05/17 09:00 08/10/17 08:59 08/05/17 09:31 Morphine Sulfate (Morphine Sulfate) 2 mg Q4H PRN IVP Severe Pain (Pain Scale 7-10) 08/03/17 14:45 08/10/17 14:44 Nitroglycerin (Ntg) 0.4 mg Q5MIN X 3 DOSES PRN SL Prn Chest Pain 08/03/17 15:45 09/02/17 15:44 Ondansetron HCl (Zofran) 4 mg Q6H PRN IVP Nausea & Vomiting 08/03/17 14:45 09/02/17 14:44 Polyethylene Glycol (Miralax) 17 gm DAILYPRN PRN ORAL Constipation 08/03/17 14:45 09/02/17 14:44 Temazepam (Restoril) 15 mg HSPRN PRN ORAL Insomnia 08/03/17 21:00 08/10/17 20:59 DEN SAGE Aug 05, 2017 12:24
--- NOTE | 2017-08-05 16:23 | Cardiology Report ---
APPROVED REPORT EKG Measurement Heart [id number] Normal sinus rhythm Abnormal ECG
[2017-08-05 16:28] VITALS: BP 123/87
--- NOTE | 2017-08-05 19:06 | Cardiology Progress Note ---
Assessment/Plan Assessment/Plan Atypical chest pain Coronary artery disease status post coronary intervention and myocardial infarction in 2000. Hypertension trop min abn will ahve perfusion imaging tomorrow ecotrin lipitor add arb Subjective Cardiovascular: Denies: chest pain, lightheadedness Respiratory: Denies: shortness of breath Gastrointestinal/Abdominal: Denies: abdominal pain Genitourinary: Denies: burning Objective Last 24 Hour Vital Signs Date Time Temp Pulse Resp B/P (MAP) Pulse Ox O2 Delivery O2 Flow Rate FiO2 08/05/17 16:59 123/87 08/05/17 16:28 97.9 82 20 123/87 99 Room Air 08/05/17 16:07 84 08/05/17 12:08 79 08/05/17 12:00 97.2 90 20 134/91 91 Room Air 08/05/17 09:20 141/97 08/05/17 09:19 85 141/97 08/05/17 08:01 95 08/05/17 08:00 97.9 85 19 141/97 99 Room Air 08/05/17 04:00 98.0 96 20 130/80 96 Room Air 21 08/05/17 04:00 62 08/05/17 00:00 70 08/05/17 00:00 98.4 69 20 119/80 96 Room Air 21 08/04/17 20:03 88 08/04/17 20:00 98.5 92 20 139/90 99 Room Air General Appearance: no apparent distress, alert Neck: supple Cardiovascular: normal rate, regular rhythm Respiratory/Chest: lungs clear Abdomen: normal bowel sounds, non tender, soft Extremities: no swelling Intake and Output 08/04/17 08/05/17 19:00 07:00 Intake Total 840 ml Balance 840 ml Intake Oral 840 ml # Voids 5 1 Laboratory Tests Test 08/05/17 07:02 08/05/17 14:55 White Blood Count 7.7 K/UL (4.8-10.8) Red Blood Count 5.11 M/UL (4.20-5.40) Hemoglobin 14.8 G/DL (12.0-16.0) Hematocrit 44.8 % (37.0-47.0) Mean Corpuscular Volume 88 FL (80-99) Mean Corpuscular Hemoglobin 29.0 PG (27.0-31.0) Mean Corpuscular Hemoglobin Concent 33.0 G/DL (32.0-36.0) Red Cell Distribution Width 12.9 % (11.6-14.8) Platelet Count 301 K/UL (150-450) Mean Platelet Volume 6.1 FL (6.5-10.1) L Neutrophils (%) (Auto) 56.9 % (45.0-75.0) Lymphocytes (%) (Auto) 31.7 % (20.0-45.0) Monocytes (%) (Auto) 6.6 % (1.0-10.0) Eosinophils (%) (Auto) 4.2 % (0.0-3.0) H Basophils (%) (Auto) 0.7 % (0.0-2.0) Erythrocyte Sedimentation Rate 6 MM/HR (0-30) Sodium Level 138 MMOL/L (136-145) Potassium Level 3.9 MMOL/L (3.5-5.1) Chloride Level 103 MMOL/L (98-107) Carbon Dioxide Level 29 MMOL/L (21-32) Anion Gap 6 mmol/L (5-15) Blood Urea Nitrogen 16 mg/dL (7-18) Creatinine 0.8 MG/DL (0.55-1.30) Estimat Glomerular Filtration Rate > 60 mL/min (>60) Glucose Level 91 MG/DL (74-106) Calcium Level 8.9 MG/DL (8.5-10.1) Phosphorus Level 3.7 MG/DL (2.5-4.9) Magnesium Level 2.2 MG/DL (1.5-2.4) Total Bilirubin 0.5 MG/DL (0.2-1.0) Aspartate Amino Transf (AST/SGOT) 16 U/L (15-37) Alanine Aminotransferase (ALT/SGPT) 21 U/L (12-78) Alkaline Phosphatase 98 U/L (46-116) Troponin I 0.153 ng/mL (0.000-0.056) 0.122 ng/mL (0.000-0.056) Total Protein 6.7 G/DL (6.4-8.2) Albumin 3.1 G/DL (3.4-5.0) L Globulin 3.6 g/dL Albumin/Globulin Ratio 0.9 (1.0-2.7) L RANJIT ESTEVEZUN Aug 05, 2017 19:06
[2017-08-05] MEDS ORDERED: Lexiscan 0.4mg/5ml syringe IV ONE (19:15)
[2017-08-05 20:00] VITALS: BP 129/88
[2017-08-05] MEDS: Atorvastatin 20mg tab ORAL SCH (20:44)
[2017-08-05] MEDS: Losartan 25mg tab ORAL SCH (20:44)
[2017-08-06] VITALS: BP 130/86
[2017-08-06 04:00] VITALS: BP 136/88
[2017-08-06 08:00] VITALS: BP 140/86
[2017-08-06] MEDS: Aspirin Baby 81mg ORAL SCH (09:29)
[2017-08-06] MEDS: cloNIDine 0.2mg Tab ORAL SCH (09:30)
[2017-08-06] MEDS: Losartan 25mg tab ORAL SCH (09:30)
[2017-08-06] MEDS: Heparin 5000 units/ml inj SUBQ SCH (09:35)
[2017-08-06 12:00] VITALS: BP 140/85
[2017-08-06] MEDS ORDERED: LIPITOR20 MG ORAL (12:32)
[2017-08-06] MEDS ORDERED: LOSARTAN POTASS25 MG ORAL (12:32)
--- NOTE | 2017-08-06 12:33 | Pulmonology Progress Note ---
Assessment/Plan Problems: (1) Hypertensive emergency (2) ACS (acute coronary syndrome) Assessment/Plan f/u echo f/u cardio recommendation resume amlodipine dvt prophylaxis. awaiting cardiac recommendation about performing stress testing. 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 Subjective ROS Limited/Unobtainable: No Constitutional: Reports: no symptoms HEENT: Repors: no symptoms Respiratory: Reports: no symptoms Allergies: Coded Allergies: No Known Allergies (Unverified , 04/29/16) Objective Last 24 Hour Vital Signs Date Time Temp Pulse Resp B/P (MAP) Pulse Ox O2 Delivery O2 Flow Rate FiO2 08/06/17 12:00 99.5 110 18 140/85 100 Room Air 08/06/17 11:13 125 08/06/17 09:30 140/86 08/06/17 09:30 77 140/86 08/06/17 09:30 140/86 08/06/17 08:00 67 08/06/17 08:00 97.9 77 20 140/86 98 Room Air 08/06/17 04:00 59 08/06/17 04:00 97.3 74 20 136/88 99 Room Air 08/06/17 00:00 97.6 74 21 130/86 98 Room Air 08/06/17 00:00 57 08/05/17 20:44 123/87 08/05/17 20:00 98.7 80 21 129/88 98 Room Air 08/05/17 20:00 75 08/05/17 16:59 123/87 08/05/17 16:28 97.9 82 20 123/87 99 Room Air 08/05/17 16:07 84 Intake and Output 08/05/17 08/06/17 19:00 07:00 Intake Total 760 ml Balance 760 ml Intake Oral 760 ml # Voids 2 Objective General Appearance: WD/WN HEENT: normocephalic Respiratory/Chest: chest wall non-tender, lungs clear, normal breath sounds Cardiovascular: normal peripheral pulses, normal rate Abdomen: normal bowel sounds, soft, non tender, no organomegaly Extremities: no cyanosis, no clubbing 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 Lymphatic: no neck adenopathy Laboratory Tests 08/05/17 14:55: Troponin I 0.122H Current Medications Medications (Trade) Dose Ordered Sig/Toby Route PRN Reason Start Time Stop Time Status Last Admin Dose Admin Acetaminophen (Tylenol) 650 mg Q4H PRN ORAL T>100.5 08/03/17 14:45 09/02/17 14:44 Albuterol/ Ipratropium (Albuterol/ Ipratropium) 3 ml Q4H PRN HHN Shortness of Breath 08/03/17 14:45 08/08/17 14:44 Amlodipine Besylate (Norvasc) 10 mg DAILY ORAL 08/05/17 09:00 09/04/17 08:59 08/06/17 09:30 Aspirin (ASA) 162 mg DAILY ORAL 08/04/17 09:00 09/03/17 08:59 08/06/17 09:29 Atorvastatin Calcium (Lipitor) 40 mg BEDTIME ORAL 08/04/17 21:00 09/03/17 20:59 08/05/17 20:44 Clonidine HCl (Catapres tab) 0.2 mg TWICE A DAY ORAL 08/03/17 18:00 09/02/17 17:59 08/06/17 09:30 Diltiazem HCl (Cardizem) 10 mg EVERY HOUR PRN IV heart rate more than 120 08/03/17 14:45 09/02/17 14:44 08/06/17 11:13 Enalaprilat (Vasotec) 2.5 mg Q6H PRN IV sbp more than 160 08/03/17 14:45 09/02/17 14:44 Heparin Sodium (Porcine) (Heparin 5000 units/ml) 5,000 units EVERY 12 HOURS SUBQ 08/03/17 21:00 09/02/17 20:59 08/06/17 09:35 Losartan Potassium (Cozaar) 25 mg DAILY ORAL 08/05/17 19:15 09/04/17 19:14 08/06/17 09:30 Methotrexate (metHOTREXate) 15 mg QWEEK ORAL 08/05/17 09:00 08/10/17 08:59 08/05/17 09:31 Morphine Sulfate (Morphine Sulfate) 2 mg Q4H PRN IVP Severe Pain (Pain Scale 7-10) 08/03/17 14:45 08/10/17 14:44 Nitroglycerin (Ntg) 0.4 mg Q5MIN X 3 DOSES PRN SL Prn Chest Pain 08/03/17 15:45 09/02/17 15:44 Ondansetron HCl (Zofran) 4 mg Q6H PRN IVP Nausea & Vomiting 08/03/17 14:45 09/02/17 14:44 Polyethylene Glycol (Miralax) 17 gm DAILYPRN PRN ORAL Constipation 08/03/17 14:45 09/02/17 14:44 Temazepam (Restoril) 15 mg HSPRN PRN ORAL Insomnia 08/03/17 21:00 08/10/17 20:59 DEN SAGE Aug 06, 2017 12:33
--- NOTE | 2017-08-06 15:14 | Diagnostic Imaging Report ---
Indication: chest pain Technique: The study was conducted under the supervision of a packing room inspector. lexiscan (regadenoson) infusion over 10 seconds followed by intravenous administration of 32 mCi of technetium 99m Myoview was performed. Three plane SPECT imaging of the heart was then performed. A resting study was performed as part of the one-day protocol with 10.7 mCi of technetium 99m myoview injected intravenously at that time. Three plane SPECT imaging of the heart was obtained. Comparison: None Clinical data: 1. Clinical response: Non ischemic 2. Electrocardiographic response: Non ischemic Findings: The myocardial perfusion scan demonstrates hypoperfusion inferior wall. Please correlate clinically for previous inferior wall infarct. This could be due to diaphragmatic attenuation. LVEF estimated at 77%. No reversible segments identified. IMPRESSION: Hypoperfusion inferior wall. Diaphragmatic attenuation versus old infarct. These correlate clinically.
[2017-08-06 16:00] VITALS: BP 136/82
--- NOTE | 2017-08-07 10:00 | Discharge Summary ---
Discharge Summary Hospital Course Date of Admission Aug 03, 2017 at 13:50 Date of Discharge Aug 06, 2017 at 18:12 Admitting Diagnosis acs HPI Dolly Coles is a 61 year old female who was admitted on Aug 03, 2017 at 13: 50 for Acute Coronary Syndrome Hospital Course [id number] Discharge Discharge Disposition Patient was discharged to Home (01) Discharge Diagnoses: Dimple Triplett NP Aug 07, 2017 09:59
--- NOTE | 2017-08-07 22:45 | Discharge Summary 2 SIG ---
DATE OF ADMISSION: 08/03/2017 DATE OF DISCHARGE: 08/06/2017 COMMUNITY HEALTH NAVIGATOR: Colton Ferrara M.D. BRIEF HOSPITAL COURSE: The patient is a 61-year-old female with history of hypertension, presented to ED complaining of chest pain for 15 minutes. Chest pain started while patient was at rest and was localized to the substernal area with no radiation to the back. It was described to be sharp in nature and had gradual in onset. She had history of cardiac catheterization done 10 years ago. On evaluation at ED, blood pressure was elevated to 200 systolic. Initial troponin was 0.051. EKG showed tachycardia with possible T-wave inversion in V3. She was given aspirin and morphine. Chest x-ray done showed no acute findings. She was admitted to telemetry for cardiac evaluation and serial enzyme monitoring. She was seen by Dr. Ferrara. Lipid panel checked showed LDL of 95, total cholesterol 171, and HDL 71. She had an echocardiogram that showed normal left ventricular systolic function with ejection fraction 55% to 60%. Second troponin was elevated to 0.16. She was given Lipitor and aspirin. For blood pressure, she was started initially with amlodipine. Cozaar was added for better control and amlodipine was eventually increased to 10 mg daily. On 08/06/2017, she underwent Lexiscan. Results were nonischemic. She was eventually discharged home. FINAL DIAGNOSES: 1. Hypertensive emergency. 2. Coronary artery disease. 3. Atypical chest pain. 4. Prior myocardial infarction in 2010 status post coronary intervention. DISPOSITION: The patient was discharged home. DISCHARGE MEDICATIONS: Refer to medication list. DISCHARGE INSTRUCTIONS: Follow up with PCP in a week. Tabitha Kaiser M.D. I have been assigned to dictate discharge summary on this account and I was not involved in the patient's management. Dimple Triplett N.P. DR: AMILCAR JOB#: [id number] CC:
== END 2017-08-06 18:12 | disposition home or self-care (01) | DRG 305 ==
LOC: EMR 12:13 → 2E 13:50 → EDBEDREQ 15:23
DX: I16.0 Hypertensive urgency (principal); I25.2 Old myocardial infarction; I25.10 Atherosclerotic heart disease of native coronary artery without angina pectoris; I10 Essential (primary) hypertension; Z98.61 Coronary angioplasty status; R79.89 Other specified abnormal findings of blood chemistry; M19.90 Unspecified osteoarthritis, unspecified site; R00.0 Tachycardia, unspecified
CPT/HCPCS: 36415; 71045; 78452; 80053; 80061; 81003; 83735; 83880; 84100; 84443; 84484; 85025; 85610; 85651; 85730; 86140; 93005; 93017; 93306; 99285; J2785

== ENCOUNTER 2018-12-11 18:34 | Emergency (ER) | payer OTHER ==
[~2018-12-11] VITALS: Ht 152.4 cm; Wt 66.7 kg
[~2018-12-11 18:34] MED LIST changes: +DICLOFENAC SODI75 MG ORAL; +HYDROCHLOROTH12.5 M2 ORAL; +LIPITOR20 MG ORAL; +LOSARTAN POTASS25 MG ORAL
--- NOTE | 2018-12-11 18:48 | NUR ---
ED Nurse Note: Pt came in from home due to palpitation x 3 days, has hx of NC in July 2017. No complaint of chest pain or SOB. AOx4, BP 158/146, HR 111 upon arrival, ERMD aware. Will cont to monitor.
[2018-12-11] MEDS ORDERED: LORAZEPAM1 MG ORAL (18:54)
[2018-12-11] MEDS ORDERED: VITAMIN D22000 UNIT PO (18:55)
--- NOTE | 2018-12-11 19:11 | NUR ---
HAND-OFF: Report given to PRAFUL Pearson.
[2018-12-11 19:12] LABS: EOSINOPHILS % (AUTO) 0.8 % (0.0-3.0); HEMATOCRIT 46.2 % (37.0-47.0); HEMOGLOBIN 15.7 G/DL (12.0-16.0); LYMPHOCYTES % (AUTO) 25.9 % (20.0-45.0); MEAN CORPUSCULAR VOLUME 83 FL (80-99); MONOCYTES % (AUTO) 5.8 % (1.0-10.0); NEUTROPHILS % (AUTO) 66.6 % (45.0-75.0); PLATELET COUNT 394 K/UL (150-450); RED BLOOD COUNT 5.56 M/UL (4.20-5.40); RED CELL DISTRIBUTION WIDTH 11.5 % (11.6-14.8); WHITE BLOOD COUNT 9.9 K/UL (4.8-10.8)
--- NOTE | 2018-12-11 19:13 | NUR ---
ED Nurse Note: Received report from PRAFUL Montgomery. Pt stable awake and resting with family at bedisde. No distress noted. Will continue to monitor and carry out ER MD's orders.
[2018-12-11 19:24] LABS: ANION GAP 12 mmol/L (5-15); BLOOD UREA NITROGEN 13 mg/dL (7-18); CARBON DIOXIDE 29 MMOL/L (21-32); CHLORIDE 101 MMOL/L (98-107); CREATININE 0.7 MG/DL (0.55-1.30); POTASSIUM 3.1 MMOL/L (3.5-5.1); SODIUM 142 MMOL/L (136-145)
[2018-12-11 19:38] LABS: ALANINE AMINOTRANSFERASE 18 U/L (12-78); ALBUMIN 4.7 G/DL (3.4-5.0); ALBUMIN/GLOBULIN RATIO 1.3 (1.0-2.7); ALKALINE PHOSPHATASE 137 U/L (46-116); ASPARTATE AMINO TRANSFERASE 15 U/L (15-37); BILIRUBIN,TOTAL 0.3 MG/DL (0.2-1.0)
--- NOTE | 2018-12-11 19:41 | Emergency Room Report ---
History of Present Illness General Chief Complaint: Palpitations Source: Patient Present Illness HPI Patient is a 63-year-old female presented after increased palpitation. Patient presented for increased palpitations for the past 2 to 3 days. She had prior history of diabetes. She denies any chest discomfort or shortness of breath. She had not been having any fever. She had not been having any shortness of breath. Allergies: Coded Allergies: No Known Allergies (Unverified , 04/29/16) Patient History Past Medical History: see triage record Reviewed Nursing Documentation: PMH: Agreed; PSxH: Agreed Nursing Documentation-PMH Past Medical History: No History, Except For Hx Cardiac Problems: Yes - [place] (1999) Hx Hypertension: Yes - Arthritis Hx Cancer: No Hx Gastrointestinal Problems: No Hx Neurological Problems: No - RA Review of Systems All Other Systems: negative except mentioned in HPI Physical Exam Vital Signs Date Time Temp Pulse Resp B/P (MAP) Pulse Ox O2 Delivery O2 Flow Rate FiO2 12/11/18 18:40 98.1 108 20 182/110 (134) 97 Room Air Sp02 EP Interpretation: reviewed, normal General Appearance: normal inspection, well appearing, no apparent distress, alert, GCS 15 Head: atraumatic ENT: normal ENT inspection, hearing grossly normal, normal voice Neck: normal inspection, full range of motion, supple, no bony tend Respiratory: normal inspection, lungs clear, normal breath sounds, no respiratory distress, no retraction, no wheezing Cardiovascular #1: regular rate, rhythm, no edema Gastrointestinal: normal inspection, normal bowel sounds, non tender, soft, no guarding, no hernia Genitourinary: no CVA tenderness Musculoskeletal: normal inspection, back normal, normal range of motion Neurologic: normal inspection, alert, oriented x3, responsive, supervisor carpenters III-XII nml as tested, speech normal Psychiatric: normal inspection, judgement/insight normal, mood/affect normal Skin: normal inspection, normal color, no rash Medical Decision Making Diagnostic Impression: Primary Impression: Palpitations Additional Impressions: Hypokalemia Premature ventricular contractions ER Course Patient presented for palpitations. Differential diagnosis include was not limited to electrolyte abnormality, ventricular tachycardia, arrhythmia, premature ventricular contractions among others. Because of complexity of patient's case laboratory testing and imaging studies were ordered. Patient's laboratory testing showed mild hypokalemia. She is given IV magnesium as well as oral potassium. Patient was noted to have some improvement in her palpitations. Patient was noted to have improvement in condition after magnesium. Patient was advised to follow up with her bookkeeping assistant. She was to return for any worsening of condition or other concerns. Labs Test 12/11/18 19:00 White Blood Count 9.9 K/UL (4.8-10.8) Red Blood Count 5.56 M/UL (4.20-5.40) Hemoglobin 15.7 G/DL (12.0-16.0) Hematocrit 46.2 % (37.0-47.0) Mean Corpuscular Volume 83 FL (80-99) Mean Corpuscular Hemoglobin 28.3 PG (27.0-31.0) Mean Corpuscular Hemoglobin Concent 34.1 G/DL (32.0-36.0) Red Cell Distribution Width 11.5 % (11.6-14.8) Platelet Count 394 K/UL (150-450) Mean Platelet Volume 4.8 FL (6.5-10.1) Neutrophils (%) (Auto) 66.6 % (45.0-75.0) Lymphocytes (%) (Auto) 25.9 % (20.0-45.0) Monocytes (%) (Auto) 5.8 % (1.0-10.0) Eosinophils (%) (Auto) 0.8 % (0.0-3.0) Basophils (%) (Auto) 1.0 % (0.0-2.0) Sodium Level 142 MMOL/L (136-145) Potassium Level 3.1 MMOL/L (3.5-5.1) Chloride Level 101 MMOL/L (98-107) Carbon Dioxide Level 29 MMOL/L (21-32) Anion Gap 12 mmol/L (5-15) Blood Urea Nitrogen 13 mg/dL (7-18) Creatinine 0.7 MG/DL (0.55-1.30) Estimat Glomerular Filtration Rate > 60 mL/min (>60) Glucose Level 145 MG/DL (74-106) Calcium Level 10.0 MG/DL (8.5-10.1) Magnesium Level 2.1 MG/DL (1.8-2.4) Total Bilirubin 0.3 MG/DL (0.2-1.0) Aspartate Amino Transf (AST/SGOT) 15 U/L (15-37) Alanine Aminotransferase (ALT/SGPT) 18 U/L (12-78) Alkaline Phosphatase 137 U/L (46-116) Troponin I 0.000 ng/mL (0.000-0.056) Total Protein 8.4 G/DL (6.4-8.2) Albumin 4.7 G/DL (3.4-5.0) Globulin 3.7 g/dL Albumin/Globulin Ratio 1.3 (1.0-2.7) Thyroid Stimulating Hormone (TSH) 5.536 uiU/mL (0.358-3.740) EKG Diagnostic Results Rate: normal Rhythm: NSR ST Segments: no acute changes Rhythm Strip Diag. Results EP Interpretation: yes Rhythm: NSR, other - occasional pvc's Last Vital Signs Date Time Temp Pulse Resp B/P (MAP) Pulse Ox O2 Delivery O2 Flow Rate FiO2 12/11/18 18:40 98.1 108 20 182/110 (134) 97 Room Air Status: improved Disposition: HOME, SELF-CARE Condition: Stable Marc Foss MD Dec 11, 2018 19:41
[2018-12-11 20:00] VITALS: BP 168/100
--- NOTE | 2018-12-11 20:43 | NUR ---
ED Nurse Note: Asked ER MD if ok for pt to eat per pt. Gave food and drink per ER MD permission. Will continue to monitor.
[2018-12-11 21:00] VITALS: BP 153/96
[2018-12-11 21:30] VITALS: BP 148/88
--- NOTE | 2018-12-11 21:55 | NUR ---
ED Nurse Note: Pt cleared by health care Provider for discharge. DC instructions/prescription was given and explained to pt and verbalized understanding of teachings. All medical deviecs such as ID band and IV line removed. Pt is AAO x4, ambulatory and left with all personal belongings.
[2018-12-11 21:57] VITALS: BP 148/88
== END 2018-12-11 21:50 | disposition home or self-care (01) ==
LOC: EMR 19:12
DX: I49.3 Ventricular premature depolarization (principal); E87.6 Hypokalemia; R00.2 Palpitations; M06.9 Rheumatoid arthritis, unspecified; I25.2 Old myocardial infarction
CPT/HCPCS: 36415; 80053; 83735; 84443; 84484; 85025; 93005; 96365; 99284; J8499

== ENCOUNTER 2019-10-21 11:53 | Emergency (ER) | payer OTHER ==
[~2019-10-21] VITALS: Ht 154.9 cm; Wt 67.1 kg
[~2019-10-21 11:53] MED LIST changes: +LORAZEPAM1 MG ORAL
[2019-10-21 12:19] VITALS: BP 173/109
--- NOTE | 2019-10-21 12:19 | NUR ---
ED Nurse Note: Patient walked in to ER, stated has thyroid inflamation x 2 weeks. Stated went to and was prescribed Prednisone 10 mg, did not work. Patient c/o pain radiating to the back of her neck. VSS and on line up worker.
--- NOTE | 2019-10-21 12:46 | NUR ---
ED Nurse Note: All labs were sent
[2019-10-21 13:00] LABS: HEMATOCRIT 42.3 % (37.0-47.0); HEMOGLOBIN 14.7 G/DL (12.0-16.0); MEAN CORPUSCULAR VOLUME 86 FL (80-99); PLATELET COUNT 245 K/UL (150-450); RED BLOOD COUNT 4.92 M/UL (4.20-5.40); RED CELL DISTRIBUTION WIDTH 12.7 % (11.6-14.8)
[2019-10-21 13:09] LABS: ANION GAP 9 mmol/L (5-15); BLOOD UREA NITROGEN 16 mg/dL (7-18); CALCIUM 8.5 MG/DL (8.5-10.1); CARBON DIOXIDE 28 MMOL/L (21-32); CHLORIDE 105 MMOL/L (98-107); CREATININE 0.7 MG/DL (0.55-1.30); POTASSIUM 3.8 MMOL/L (3.5-5.1); SODIUM 142 MMOL/L (136-145)
[2019-10-21 13:23] LABS: ALANINE AMINOTRANSFERASE 26 U/L (12-78); ALBUMIN 3.5 G/DL (3.4-5.0); ALKALINE PHOSPHATASE 96 U/L (46-116); ASPARTATE AMINO TRANSFERASE 24 U/L (15-37); BILIRUBIN,TOTAL 0.4 MG/DL (0.2-1.0)
[2019-10-21 13:24] VITALS: BP 139/84
--- NOTE | 2019-10-21 13:35 | NUR ---
ED Nurse Note: US comleted. VVS and continue to monitor.
--- NOTE | 2019-10-21 13:35 | Emergency Room Report ---
History of Present Illness General Chief Complaint: General Complaint Source: Patient Present Illness HPI 63-year-old female presents with neck pain. Points to the throat. Was told that it is her thyroid by her PMD. Was prescribed prednisone but states it is not helping. Pain is dull, 7 out of 10, radiating to the back of her neck. Denies fevers or chills. Denies headache. Denies neck stiffness. No other aggravating relieving factors. Denies any other associated symptoms Allergies: Coded Allergies: No Known Allergies (Unverified , 04/29/16) COVID-19 Screening Contact w/high risk pt: No Recent Travel to affected area: No Experienced COVID-19 symptoms?: No Patient History Past Medical History: [place] Past Surgical History: none Pertinent Family History: none Social History: Denies: smoking, alcohol use, drug use Now: No Immunizations: UTD Reviewed Nursing Documentation: PMH: Agreed; PSxH: Agreed Nursing Documentation-PMH Hx Cardiac Problems: Yes - [place] (1999) Hx Hypertension: Yes - Arthritis Hx Cancer: No Hx Gastrointestinal Problems: No Hx Neurological Problems: No - RA Review of Systems All Other Systems: negative except mentioned in HPI Physical Exam Vital Signs Date Time Temp Pulse Resp B/P (MAP) Pulse Ox O2 Delivery O2 Flow Rate FiO2 10/21/19 12:01 98.2 73 20 173/109 (130) 98 Room Air Sp02 EP Interpretation: reviewed, normal General Appearance: no apparent distress, alert, GCS 15, non-toxic Head: normocephalic, atraumatic Eyes: bilateral eye normal inspection, bilateral eye PERRL ENT: hearing grossly normal, normal pharynx, no angioedema, normal voice Neck: full range of motion, no meningismus, no bony tend, supple/symm/no masses , other - tender over anterior neck Respiratory: chest non-tender, lungs clear, normal breath sounds, speaking full sentences Cardiovascular #1: regular rate, rhythm, no edema Cardiovascular #2: 2+ carotid (R), 2+ carotid (L), 2+ radial (R), 2+ radial (L) , 2+ dorsalis pedis (R), 2+ dorsalis pedis (L) Gastrointestinal: normal bowel sounds, non tender, soft, non-distended, no guarding, no rebound Rectal: deferred Genitourinary: normal inspection, no CVA tenderness Musculoskeletal: back normal, normal range of motion, gait/station normal, non- tender Neurologic: alert, motor strength/tone normal, oriented x3, sensory intact, responsive, speech normal Psychiatric: judgement/insight normal, memory normal, mood/affect normal, no suicidal/homicidal ideation Reflexes: 3+ bicep (R), 3+ bicep (L), 3+ tricep (R), 3+ tricep (L), 3+ knee (R) , 3+ knee (L) Skin: no rash Lymphatic: no adenopathy Medical Decision Making Diagnostic Impression: Primary Impression: Thyroid mass ER Course Hospital Course 63 yo F presents to ED c/o anterior neck pain Differential diagnosis includes- thyroid storm, thyroid nodule, thyroidtis Clinical course Patient placed on stretcher. After initial history and physical I ordered labs , IV fluids, pain medications and US Labs - noted leukocytosis, electrolytes ok, LFTs normal, TSH within normal limits US: Hypervascular lesion adjacent to or arising from the right thyroid lobe, also related to the proximal internal carotid artery. Most likely differential possibilities are carotid body tumor versus exophytic thyroid mass. I discussed findings with patient. Vitals stable. No evidence of thyroid storm. No fever. Patient would benefit from outpatient ENT evaluation. Will discharge on prednisone, antibiotics. I feel this is a highly complex case requiring extensive working including EKG/ Rhythm strip, Xray/CT/US, Blood/urine lab work, repeat exams while in ED, and administration of strong opiates/narcotics for pain control, admission to hospital or close patient follow up. Diagnosis -thyroid mass Stable and discharged to home with Rx Keflex, Prednisone. Followup with PMD/ ENT. Return to ED if symptoms recur or worsen CT/MRI/US Diagnostic Results CT/MRI/US Diagnostic Results : Imaging Test Ordered: thyroid US Impression Right thyroid lobe measures 2.9 cm length x 2.5 cm AP. Left thyroid lobe measures 3.1 cm length x 1.7 cm AP. Both thyroid lobes demonstrate normal echogenicity. Either adjacent to or arising from the right thyroid lobe is a mixed echogenicity mostly hypoechoic hypervascular lesion with microlobulated borders which is wider than tall. It contains microcalcifications. Is also located immediately adjacent to the right internal carotid artery, and may be arising from the carotid bifurcation. This measures 2.9 x 2.5 cm in diameter. The left thyroid lobe demonstrates a few tiny cystic nodule measuring up to 7 mm in diameter. Some demonstrates some peripheral calcifications. Impression: Hypervascular lesion adjacent to or arising from the right thyroid lobe, also related to the proximal internal carotid artery. Most likely differential possibilities are carotid body tumor versus exophytic thyroid mass. If the latter, this would be a TI-RADS 5 lesion for which FNA would be recommended. However, recommend neck CT with contrast to evaluate the possibility that this represents a carotid body tumor Small cystic nodules in the left thyroid lobe. These are TI-RADS 2 lesions for which no further follow-up is necessary Findings discussed by phone with Dr. Bergeron and Pipo in the emergency room at the time of interpretation Last Vital Signs Date Time Temp Pulse Resp B/P (MAP) Pulse Ox O2 Delivery O2 Flow Rate FiO2 10/21/19 13:24 98.2 65 17 139/84 98 Room Air Status: improved Disposition: HOME, SELF-CARE Condition: Stable Scripts Prednisone* (PREDNISONE*) 20 Mg Tablet 40 MG ORAL DAILY, #10 TAB Prov: Jacob Bergeron MD 10/21/19 Acetaminophen* (TYLENOL EXTRA STRENGTH*) 500 Mg Tablet 500 MG ORAL Q8H PRN for Prn Headache/Temp > 101, #30 TAB 0 Refills Prov: Jacob Bergeron MD 10/21/19 Cephalexin* (KEFLEX*) 500 Mg Capsule 500 MG ORAL EVERY 6 HOURS for 7 Days, #28 CAP Prov: Jacob Bergeron MD 10/21/19 Referrals: [facility],REFERRING (PCP) Jacob Bergeron MD October 21, 2019 13:35
[2019-10-21 14:34] VITALS: BP 133/80
[2019-10-21] MEDS ORDERED: CEPHALEXIN500 MG ORAL (14:34)
[2019-10-21] MEDS ORDERED: PREDNISONE20 MG ORAL (14:34)
[2019-10-21] MEDS ORDERED: TYLENOL EXTRA500 MG ORAL (14:34)
--- NOTE | 2019-10-21 14:41 | NUR ---
ED Nurse Note: Informed pt that CT with the contrast needs to be done before bx
--- NOTE | 2019-10-21 14:42 | NUR ---
ER DISCHARGE NOTE: Patient is cleared to be discharged per ERMD, pt is aox4, on room air, with stable vital signs. pt was given dc and prescription instructions, pt was able to verbalize understanding, pt id band and iv site removed without complications. pt is able to ambulate with steady gait. pt took all belongings.
[2019-10-21 14:45] VITALS: BP 133/80
--- NOTE | 2019-10-21 15:17 | Diagnostic Imaging Report ---
Indication: Neck pain Technique: Grayscale and duplex images of the thyroid Comparison: None Findings: Right thyroid lobe measures 2.9 cm length x 2.5 cm AP. Left thyroid lobe measures 3.1 cm length x 1.7 cm AP. Both thyroid lobes demonstrate normal echogenicity. Either adjacent to or arising from the right thyroid lobe is a mixed echogenicity mostly hypoechoic hypervascular lesion with microlobulated borders which is wider than tall. It contains microcalcifications. Is also located immediately adjacent to the right internal carotid artery, and may be arising from the carotid bifurcation. This measures 2.9 x 2.5 cm in diameter. The left thyroid lobe demonstrates a few tiny cystic nodule measuring up to 7 mm in diameter. Some demonstrates some peripheral calcifications. Impression: Hypervascular lesion adjacent to or arising from the right thyroid lobe, also related to the proximal internal carotid artery. Most likely differential possibilities are carotid body tumor versus exophytic thyroid mass. If the latter, this would be a TI-RADS 5 lesion for which FNA would be recommended. However, recommend neck CT with contrast to evaluate the possibility that this represents a carotid body tumor Small cystic nodules in the left thyroid lobe. These are TI-RADS 2 lesions for which no further follow-up is necessary Findings discussed by phone with Dr. Bergeron and Pipo in the emergency room at the time of interpretation
== END 2019-10-21 14:42 | disposition home or self-care (01) ==
LOC: EMR 12:26
DX: E07.9 Disorder of thyroid, unspecified (principal); I25.2 Old myocardial infarction; M19.90 Unspecified osteoarthritis, unspecified site; M06.9 Rheumatoid arthritis, unspecified; D72.829 Elevated white blood cell count, unspecified
CPT/HCPCS: 36415; 76536; 80053; 84439; 84443; 84481; 85007; 85025; 99284